=== PATIENT | male | born 1960 | race Caucasian/White ===

== ENCOUNTER 2018-09-24 03:06 | Observation (INO) | payer OTHER, SELFPAY ==
[2018-09-24] VITALS (12 sets, daily range): BP systolic 90–204; BP diastolic 58–129; PULSE 71–85; RESP 16–18; TEMP 36.5–36.8; O2SAT 94–99; BMI 27.4; BMI 26.4; BMI 26.5
--- NOTE | 2018-09-24 03:21 | CT_ITS ---
HISTORY: MID ABDOMEN AND BACK PAIN THIS AM,R/O DISSECTIONHX:KIDNEY STONES EXAMINATION: CTA Abd/Pelvis WO/W Contrast TECHNIQUE: Helically acquired images were obtained of the abdomen and pelvis following IV contrast. No oral contrast was administered. 3D CTA protocol was utilized. A radiation dose optimization technique was used for this scan. IV Contrast dosage and agent: 100ML Isovue 370 COMPARISON: None FINDINGS: AORTA: Unremarkable. No dissection or aneurysm. CELIAC ARTERY: Unremarkable. SUPERIOR MESENTERIC ARTERY: Unremarkable. RENAL ARTERIES: Unremarkable. ILIAC ARTERIES: Unremarkable. LOWER CHEST: Scattered calcified granulomas, mild atelectasis lung bases. LIVER: Homogeneous. No focal mass. GALLBLADDER AND BILIARY TREE: No calcified gallstones. There is no gallbladder distension or wall edema. No intra- or extrahepatic biliary ductal dilation. KIDNEYS AND URETERS: 7 mm in length, 2 mm in diameter proximal to mid left ureteral stone with moderate more proximal hydronephrosis and hydroureter. No residual left-sided stones. More distal left ureter are unremarkable. Punctate nonobstructing stone lower pole right kidney. No right hydronephrosis or right ureteral stones. ADRENAL GLANDS: Non-enlarged. SPLEEN: Incidental splenic granulomas. No splenomegaly PANCREAS: No focal cystic or solid mass. BOWEL: Normal appendix. No stomach or bowel distension. No focal inflammatory change observed. LYMPH NODES: No enlarged mesenteric or retroperitoneal lymph nodes. PERITONEUM: No ascites or free air. No other fluid collection. URINARY BLADDER: Incompletely distended, otherwise grossly unremarkable. REPRODUCTIVE ORGANS: No pelvic masses. ABDOMINAL WALL: Small right inguinal hernia contains fat and a knuckle of sigmoid colon, no associated obstruction. BONES: No acute findings. Prominent disc degeneration L5-S1. Status post L4 and L5 laminectomy. CT/CT ANGIO ABD&PEL W/O&W/DYE IMPRESSION: 7 mm stone proximal to mid left ureter with moderate obstruction. Other chronic findings as above. Individualized dose optimization techniques were used for this CT. at [id number] Reported and signed by: Han Price MD Electronically Signed: Han Price, at 4:14 EDT Tel , Service support ,
[2018-09-24] MEDS: Ondansetron 4 MG/2 ML Vial IV (03:32)
[2018-09-24] MEDS: Morphine 4 MG/ML Syringe IV (03:32)
[2018-09-24 03:38] LABS: Hematocrit 43.8 % (40-54); Hemoglobin 15.1 g/dl (13.0-16.5); Mean Corp Hgb Conc 34.5 g/gl (32-36); Mean Corpuscular Hgb 28.8 pg (27.0-32.0); Mean Corpuscular Volume 83.4 fL (80-94); Mean Platelet Vol. 10.2 fl (6.2-12.0); Neutrophil % 65.4 % (47-70); Platelet Count 191 K/mm3 (150-450); RBC Distribution Width CV 13.3 % (11.6-14.6); RBC Distribution Width SD 40.8 fl (35.1-43.9); Red Blood Count 5.25 M/mm3 (4.6-6.2); White Blood Count 7.2 K/mm3 (4.4-11.0)
[2018-09-24 03:39] LABS: Absolute Neutrophil Count 4.7 X10^3/uL (2.0-7.7); Basophil# 0.02 X10^3/uL; Basophil% 0.3 % (0-1); Eosinophil# 0.21 X10^3/uL; Eosinophils% 2.9 % (0-5); Lymphocyte % 22.3 % (19-41); Monocyte# 0.65 X10^3/uL; POSITIVE COUNT NO; POSITIVE DIFFERENTIAL NO; POSITIVE MORPHOLOGY NO
[2018-09-24 03:41] LABS: ALB/GLOB Ratio 0.9 RATIO (0.9-2.4); AST(SGOT) 24 U/L (15-37); Alanine Aminotransfer ALT/SGPT 34 U/L (16-61); Albumin, Serum 3.4 g/dL (3.2-5.0); Alkaline Phosphatase 122 U/L (45-117); Anion Gap 6 (5-15); BUN 18 mg/dL (7-18); BUN/Creat Ratio 15.9 RATIO (10-20); Chloride 108 mmol/L (98-107); Creatinine, Serum 1.13 mg/dL (0.70-1.30); EST Glomerular Filtration Rate 71 mL/min (>60); Est Glom Filt Rate - Afr Amer 86 mL/min (>60); Estimated Creatinine Clearance 72.13 ml/min; Globulin 3.7 g/dL (2.2-4.2); Glucose 120 mg/dL (74-106); Lipase 224 U/L (73-393); Potassium 3.9 mmol/L (3.5-5.1); Protein, Total 7.1 g/dL (6.4-8.2); Sodium Level 142 mmol/L (136-145)
[2018-09-24 04:20] LABS: Bacteria 0 SEEN /hpf (None Seen); Mucous, Urine 0 SEEN /hpf (<or=2+); White Blood Cells 0 SEEN /hpf (0-5)
[2018-09-24] MEDS: HYDROmorphone 1 MG/ML Syringe IV (04:21)
[2018-09-24 04:22] LABS: Color, Urine Yellow (Yellow); Glucose, Dipstick Normal (Normal); Ketone-Dipstick 5 mg/dl (Negative); Leukocyte Esterase-Dipstick 25 /ul (Negative); Nitrite-Dipstick Negative (Negative); Occult Blood-Urine 150 /ul (Negative); Protein-Dipstick 30 mg/dl (Negative); Specific Gravity, Urine 1.015 (1.002-1.030); Urine Bilirubin Dipstick Negative (Negative); Urine Clarity Clear (Clear); Urine Urobilinogen Normal (Normal); Urine pH 6.5 (5.0 - 8.0)
[2018-09-24 04:27] LABS: Red Blood Cells-Urine 5-10 SEEN /hpf (0-5); Squamous Epithelial Cells - UA 0-5 SEEN /hpf (0-5)
--- NOTE | 2018-09-24 04:31 | ED.VISSUMM ---
- ER Visit Summary Date of Service: 09/24/18 Chief Complaint: Abdominal pain History of Present Illness: The patient is a 58 M who presents with abdominal pain. This began suddenly about 2 hours ago. He complains of pain diffusely across his entire abdomen. He also complains of pain all the way across his lower back. This is not unilateral. He denies any associated nausea vomiting diarrhea dysuria frequency urgency. He has had a normal bowel movement. He has had some recent rhinorrhea review of systems otherwise negative. Physical Examination: Blood pressure 204/129 vitals otherwise unremarkable Moist mucous membranes Heart regular rate and rhythm Lungs are clear Abdomen soft nondistended he has diffuse nonfocal abdominal tenderness without guarding without rebound Back nontender No Cullens or Roman Edouard sign Test Results: EKG shows sinus rhythm at a rate of 78. CBC CMP lipase unremarkable. Urinalysis shows 5-[address] of the abdomen and pelvis shows a 7 mm proximal to mid left ureteral calculus, 7 mm. There is moderate obstruction. Emergency Department Course and Treatment: Given patient's initial presentation with diffuse abdominal and back pain which was not lateralizing and severe hypertension I was concerned about possible aortic pathology including aortic aneurysm. He was sent for a CTA of the abdomen. Fortunately no aortic pathology was identified but he does have a mid to proximal large left ureteral calculus. He was treated here with IV fluids morphine Zofran. He continued to complain of severe pain and was given IV Dilaudid. On reevaluation he rates his pain is about a 6 out of 10. Patient was discussed with Dr. Stein on annual who agrees to admit. Treatment Plan: [] Disposition: Admit Impression: Ureterolithiasis This note was generated with [employer] dictation software. It may contain incorrect words, spelling, and punctuation that were not noted in review of the chart prior to signing ED Disposition - Plan for ED Patient: Referrals: Albaro Gale MD [Primary Care Provider] -
--- NOTE | 2018-09-24 04:34 | ED.DCSUM_ITS ---
- ER Visit Summary Date of Service: 09/24/18 Chief Complaint: Abdominal pain History of Present Illness: The patient is a 58 M who presents with abdominal pain. This began suddenly about 2 hours ago. He complains of pain diffusely across his entire abdomen. He also complains of pain all the way across his lower back. This is not unilateral. He denies any associated nausea vomiting diarrhea dysuria frequency urgency. He has had a normal bowel movement. He has had some recent rhinorrhea review of systems otherwise negative. Physical Examination: Blood pressure 204/129 vitals otherwise unremarkable Moist mucous membranes Heart regular rate and rhythm Lungs are clear Abdomen soft nondistended he has diffuse nonfocal abdominal tenderness without guarding without rebound Back nontender No Cullens or Roman Edouard sign Test Results: EKG shows sinus rhythm at a rate of 78. CBC CMP lipase unremarkable. Urinalysis shows 5-[address] of the abdomen and pelvis shows a 7 mm proximal to mid left ureteral calculus, 7 mm. There is moderate obstruction. Emergency Department Course and Treatment: Given patient's initial presentation with diffuse abdominal and back pain which was not lateralizing and severe hyp ertension I was concerned about possible aortic pathology including aortic aneurysm. He was sent for a CTA of the abdomen. Fortunately no aortic pathology was identified but he does have a mid to proximal large left ureteral calculus. He was treated here with IV fluids morphine Zofran. He continued to complain of severe pain and was given IV Dilaudid. On reevaluation he rates his pain is about a 6 out of 10. Patient was discussed with Dr. Stein on annual who agrees to admit. Treatment Plan: [] Disposition: Admit Impression: Ureterolithiasis This note was generated with [employer] dictation software. It may contain incorrect words, spelling, and punctuation that were not noted in review of the chart prior to signing ED Disposition - Plan for ED Patient: Referrals: Albaro Gale MD [Primary Care Provider] -
--- NOTE | 2018-09-24 04:37 | ED.RN ---
NO OLD EKGS IN MUSE
[2018-09-24] MEDS: proMETHazine 25 MG/ML Syringe 12.5 MG IV (05:19)
[2018-09-24] MEDS: 0.9% Normal Saline 1,000 ML 125 ML IV ×3 (06:07→17:04)
[2018-09-24] MEDS: Morphine 2 MG/ML Syringe IV ×2 (06:08→10:01)
--- NOTE | 2018-09-24 07:27 | PCM.HP.STD ---
History of Present Illness Date of Admission: 09/24/18 Chief Complaint: left ureteral calculi The patient is a 58 year old male with a 6 mm stone in the mid left ureter causing severe ureteral colic and pain in the severe hydronephrosis and high-grade obstruction he was admitted for pain control Past Medical History Allergies azithromycin [From Zithromax] Allergy (Verified 09/24/18 03:10) Swelling Home Medications: Ambulatory Orders Medication Instructions Recorded Propranolol HCl 160 mg PO QHS 07/29/16 Rizatriptan Benzoate [Maxalt] 10 mg PO DAILY PRN PRN 07/29/16 Atorvastatin Calcium [Lipitor] 20 mg PO QHS 09/24/18 Losartan Potassium 1 tab PO QHS 09/24/18 Surgical History: no surgical history Psychiatric History: No pertinent psych hx Lives: With Family Smoking Status: Never smoker Tobacco Use: Non-smoker Alcohol: None Drugs: None - *Family History Maternal History Items: No pertinent history Review of Systems Constitutional: Denies: Chills, Fever, Weight Change HEENT: Denies: Head Aches, Sinus Congestion, Sinus Drainage Cardiovascular: Denies: Chest Pain, Palpitations Respiratory: Denies: Cough, Shortness of breath at rest, Sputum production Gastrointestinal: Reports: Abdominal Pain. Denies: Nausea, Vomiting Genitourinary: Denies: Dysuria Musculoskeletal: Denies: Joint Pain, Joint Tenderness Skin: Denies: Rash, Wounds Neurological: Denies: Numbness, Tingling, Focal weakness Psychiatric: Denies: Anxiety, Depression, Homicidal Ideations, Suicidal Ideations Hematologic/ Lymphatic: Denies: Easy Bruising, Easy Bleeding VTE Information - Inpt Only VTE Present on Admission: No VTE Mechan Device Prophylaxis: SCD's - Physical Exam General: Alert, Oriented x3, Cooperative HEENT: Atraumatic, PERRLA, EOMI, Normocephalic Neck: Supple, No JVD, Negative Carotid Bruits Lungs: Clear to auscultation, Normal air movement Cardiovascular: Regular rate, No murmurs Abdomen: Bowel Sounds Present, Soft, Non Tender Extremities: No edema, Capillary Refill Less than 3 Seconds Skin: No rashes, No breakdown Musculoskeletal: No Tenderness to Palpation of Joints or Extremities Neurological: Cranial nerves II-XII grossly intact Psych/Mental Status: Normal Affect, Appropriate Vital Signs Temp Pulse Resp BP Pulse Ox 97.8 F 85 16 181/106 H 99 09/24/18 05:59 09/24/18 05:59 09/24/18 05:59 09/24/18 05:59 09/24/18 05:59 Oxygen Delivery Method Room Air Weight: 81.25 kg Body Mass Index (BMI) 26.4 Intake and Output for Last 24 Hours 09/22/18 09/23/18 09/24/18 23:59 23:59 23:59 Intake Total Balance Laboratory Tests Past 24 Hrs 09/24/18 09/24/18 09/24/18 03:15 03:15 04:15 WBC 7.2 RBC 5.25 Hgb 15.1 Hct 43.8 MCV 83.4 MCH 28.8 MCHC 34.5 RDW 13.3 RDW Differential 40.8 Plt Count 191 MPV 10.2 Immature Gran % (Auto) 0.100 Neut % (Auto) 65.4 Lymph % (Auto) 22.3 Noble % (Auto) 9.0 Eos % (Auto) 2.9 Baso % (Auto) 0.3 Absolute Neuts (auto) 4.7 Absolute Lymphs (auto) 1.60 Total Counted Not Reportable Sodium 142 Potassium 3.9 Chloride 108 H Carbon Dioxide 28.0 Anion Gap 6 BUN 18 Creatinine 1.13 Estim Creat Clear Calc 72.13 Est GFR (MDRD) Af Amer 86 Est GFR (MDRD) Non-Af 71 BUN/Creatinine Ratio 15.9 Glucose 120 H Calcium 9.0 Total Bilirubin 0.70 AST 24 ALT 34 Alkaline Phosphatase 122 H Total Protein 7.1 Albumin 3.4 Globulin 3.7 Albumin/Globulin Ratio 0.9 Lipase 224 Urine Color Yellow Urine Clarity Clear Urine pH 6.5 Ur Specific [place] 1.015 Urine Protein 30 H Urine Glucose (UA) Normal Urine Ketones 5 H Urine Occult Blood 150 H Urine Nitrite Negative Urine Bilirubin Negative Urine Urobilinogen Normal Ur Leukocyte Esterase 25 H Urine RBC 5-10 SEEN Urine WBC 0 SEEN Ur Squamous Epith Cells 0-5 SEEN Urine Bacteria 0 SEEN Urine Mucus 0 SEEN Assessment/Plan Plan for surgery today for cystoscopy left stent placement he will be n.p.o. we will get blood work and EKG preoperative status assessment will be completed for the obstructing stone we will place a stent to alleviate the obstruction.
[2018-09-24 08:44] LABS: Hematocrit 43.3 % (40-54); Hemoglobin 14.9 g/dl (13.0-16.5); Mean Corp Hgb Conc 34.4 g/gl (32-36); Mean Corpuscular Hgb 29.3 pg (27.0-32.0); Mean Corpuscular Volume 85.2 fL (80-94); Mean Platelet Vol. 9.7 fl (6.2-12.0); Platelet Count 162 K/mm3 (150-450); RBC Distribution Width CV 13.2 % (11.6-14.6); RBC Distribution Width SD 40.8 fl (35.1-43.9); Red Blood Count 5.08 M/mm3 (4.6-6.2); White Blood Count 9.1 K/mm3 (4.4-11.0)
[2018-09-24 08:45] LABS: Scan Indicated on CBC? Y/N NO
[2018-09-24 09:03] LABS: Anion Gap 4 (5-15); BUN 18 mg/dL (7-18); BUN/Creat Ratio 14.3 RATIO (10-20); Calcium,Total 8.5 mg/dL (8.5-10.1); Chloride 108 mmol/L (98-107); Creatinine, Serum 1.26 mg/dL (0.70-1.30); EST Glomerular Filtration Rate 63 mL/min (>60); Est Glom Filt Rate - Afr Amer 76 mL/min (>60); Estimated Creatinine Clearance 64.68 ml/min; Glucose 131 mg/dL (74-106); Sodium Level 140 mmol/L (136-145)
[2018-09-24] MEDS: Losartan Potassium 25 MG Tablet PO (09:49)
[2018-09-24] MEDS: Propranolol LA 80 MG Capsule 160 MG PO (09:49)
--- NOTE | 2018-09-24 13:27 | CASEMGMT ---
RN CLARE Face to Face with patient for initial transition planning/care coordination assessment. RN CM introduced self and role at [facility]. Patient lying in bed, alert and oriented. Patient willing to participate in assessment and is able to answer all questionsappropriately. Care providers, pharmacy, and demographics verified. Patient wishes to discharge home, denies need for home health at this time. Patient states he has no further needs or concerns at this time. CM to follow for discharge planning needs that may arise. PCP: Baljinder Specialists: None Preferred Pharmacy: [facility] Insurance: [employer] Prescription Benefit: yes Living Will/HPOA: Yes, Adele Nevarez LNOK: Living Arrangements: Patient lives with in 1 story home. Patient is independent at home. Transportation: self/ DME/HHC: Patient denies any need for DME Disposition Plan: Patient to discharge home with family support and follow up plans in place. Pat RANDN, RN, CM
--- NOTE | 2018-09-24 16:40 | DCINST_ITS ---
Discharge Diet: Light diet - advance as tolerated Discharge Activity: Return to Normal Activity Call your doctor if you observe: Fever of 101 or Higher Suture Line Care: Avoid Pulling/Pushing, Avoid Pinching/Bending Instructions: Ureteral Stents Allergies/Adverse Reactions: Allergies azithromycin [From Zithromax] Allergy (Verified 09/24/18 03:10) Swelling Medications to take at Discharge Propranolol HCl 160 mg PO QHS 07/29/16 Rizatriptan Benzoate [Maxalt] 10 mg PO DAILY PRN PRN 07/29/16 Atorvastatin Calcium [Lipitor] 20 mg PO QHS 09/24/18 Losartan Potassium 1 tab PO QHS 09/24/18 Primary Care Physician: Albaro Gale MD [Primary Care Provider] - Test Results: Test results from this visit will be discussed in further detail at your follow- up appointment, if applicable. Please Follow Up With: Srikanth Zuleta MD When: call office to confirm surgery
--- NOTE | 2018-09-24 16:45 | OP.PCM_ITS ---
Report of Operation Date of Procedure: 09/24/18 Pre-Operative Diagnosis: Left obstructing ureteral calculi Post-Operative Diagnosis: Same Surgery/Procedure Performed:: Cystoscopy, left retrograde pyelogram, interpretation fluoroscopic images, left stent placement Description of Surgical Findings:: 58-year-old male taken back to the operating room at the smooth induction of general anesthesia he was placed in dorsolithotomy position, the penis and tonsils are prepped and draped in usual sterile fashion went into the bladder with a 21 [place] rigid cystourethroscope the entire length the urethra was normal, the sphincter was normal the prostate was normal, the bladder was normal with no tumors or stones. The trigone is normal identify the right and left ureteral orifice and cannulated the left ureteral orifice with a Glidewire and a Pollack catheter performed a retrograde pyelogram can see contrast going up the ureter and then could see contrast going around the stone and dilation of the ureter and severe hydronephrosis behind the stone. After interpreting the images I then advanced a wire up into the kidney over the wire I then advanced a stent there was a 6 [place] by 26 cm stent we pulled it took the string off so we get pulled out by accident pulled the wire the stent coiled in the kidney bladder good position I drain the bladder patient anesthetic was reversed to take back to PACU good condition to be discharged from the hospital today and will plan for follow up in my office Type of Anesthesia:: General Drains: stent left side - Admit VTE Documentation VTE Present on Admission: No VTE Mechan Device Prophylaxis: SCD's
== END 2018-09-24 20:39 | disposition home or self-care (01) ==
LOC: ED 04:22 → MS3 05:00
PROVIDERS: Admitting Provider Urology; Emergency Provider Emergency Medicine; Family Provider Family Medicine; PCP Family Medicine; Visit Provider Urology
PROC: (CPT 52332; principal; 2018-09-24 15:25)
DX: N13.2 Hydronephrosis with renal and ureteral calculous obstruction (principal); I10 Essential (primary) hypertension; Z79.899 Other long term (current) drug therapy; E78.00 Pure hypercholesterolemia, unspecified
CPT/HCPCS: 52332; 36415; 74174; 76000; 80048; 80053; 81001; 83690; 85025; 85027; 93005; 96374; 96375; 96376; 99218; 99284; J7030; Q9967; A4216; C1769; C2617; G0378; J2405